=== PATIENT | male | born 1990 | race African-American/Black ===

== ENCOUNTER 2017-02-11 13:53 | Emergency (ER) | payer SELFPAY ==
[~2017-02-11] VITALS: Ht 177.8 cm; Wt 79.5 kg
[~2017-02-11 13:53] MED LIST: CYCL-36 PO; IBUP600T26 PO
[2017-02-11 13:54] VITALS: BP 133/76; PULSE 96; RESP 20; TEMP 102.3; O2SAT 98
[2017-02-11 14:38] LABS: BASOPHIL % 0.2 % (0.0-2.0); HEMATOCRIT 40.8 % (39.0-51.0); HEMO FLAGS DIFF FINAL; LYMPH % 10.1 % (9.0-44.0); LYMPHOCYTE # 1.4 TH/MM3 (1.0-4.8); MEAN CELL VOLUME 80.1 FL (80.0-100.0); MEAN CORPUSCULAR HEMOGLOBIN 25.9 PG (27.0-34.0); MEAN CORPUSCULAR HGB CONC 32.3 % (32.0-36.0); MONO % 9.2 % (0.0-8.0); NEUT % 80.5 % (16.0-70.0); PLATELET COUNT 204 TH/MM3 (150-450); RED CELL DISTRIBUTION WIDTH 15.2 % (11.6-17.2); WHITE BLOOD COUNT 13.6 TH/MM3 (4.0-11.0)
[2017-02-11 14:59] LABS: ALT (GPT) 19 U/L (12-78); ANION GAP 10 MEQ/L (5-15); AST (GOT) 21 U/L (15-37); BLOOD UREA NITROGEN 12 MG/DL (7-18); CHLORIDE 100 MEQ/L (98-107); GLOMERULAR FILTRATION RATE 83 ML/MIN (>89); POTASSIUM 3.5 MEQ/L (3.5-5.1); SODIUM (NA) 136 MEQ/L (136-145)
[2017-02-11 15:02] LABS: ALKALINE PHOSPHATASE 60 U/L (45-117); TOTAL BILIRUBIN ADULT 0.4 MG/DL (0.2-1.0)
[2017-02-11] MEDS ORDERED: ACETAMINOPHEN 500 MG CPLT PO ONE (16:00)
[2017-02-11] MEDS ORDERED: SODIUM CHLOR 0.9% 1000 ML INJ 1,000 ML IV SCH (16:00)
[2017-02-11] MEDS ORDERED: IOHEXOL 350 MG/ML 10 ML VIAL (for RAD DIAG) IVCONTRAST ONE (16:19)
--- NOTE | 2017-02-11 16:34 | RADRPT ---
EXAM DATE/TIME: 02/11/2017 16:05 [place] COMPARISON: CT ABDOMEN & PELVIS W CONTRAST, June 29, 2009, 22:25. INDICATIONS : Diffuse upper right abdomen pain with constipation and chills. IV CONTRAST: 96 cc Omnipaque 350 (iohexol) IV ORAL CONTRAST: No oral contrast ingested. RADIATION DOSE: 6.64 CTDIvol (mGy) MEDICAL HISTORY : None SURGICAL HISTORY : Appendectomy. ENCOUNTER: Initial ACUITY: 3 days PAIN SCALE: 7/10 LOCATION: Right upper quadrant TECHNIQUE: Volumetric scanning of the abdomen and pelvis was performed. Using automated exposure control and ad justment of the mA and/or kV according to patient size, radiation dose was kept as low as reasonably achievable to obtain optimal diagnostic quality images. DICOM format image data is available electro nically for review and comparison. FINDINGS: LOWER LUNGS: The visualized lower lungs are clear. LIVER: Homogeneous density without lesion. There is no dilation of the biliary tree. No calcified gallston es. SPLEEN: Normal size without lesion. PANCREAS: Within normal limits. KIDNEYS: Normal in size and shape. There is no mass, stone or hydronephrosis. ADRENAL GLANDS: Within normal limits. VASCULAR: There is no aortic aneurysm. BOWEL/MESENTERY: The stomach, small bowel, and colon demonstrate no acute abnormality. There is no free intraperitone al air or fluid. ABDOMINAL WALL: Within normal limits. RETROPERITONEUM: There is no lymphadenopathy. BLADDER: No wall thickening or mass. REPRODUCTIVE: Small right hydrocele INGUINAL: There is no lymphadenopathy or hernia. MUSCULOSKELETAL: Within normal limits for patient age. CONCLUSION: 1. Small right hydrocele. 2. I don't see inflammatory process in the abdomen or pelvis 3. There is no evidence of pyelonephritis. Shon Vinson MD FACR on February 11, 2017 at 16:31 Board Certified Radiologist. This report was verified electronically.
[2017-02-11 16:53] LABS: BLOOD, URINE NEG (NEG); COMMENT (UR) CULT NOT INDICATED; CULTURE IF INDICATED CULT NOT INDICATED; GLUCOSE,URINE NEG (NEG); KETONE, URINE 10 mg/dL (NEG); MUCUS URINE FEW /lpf (OCC); NITRITE,URINE NEG (NEG); PH, URINE 6.5 (5.0-8.5); URINE COLOR YELLOW (YELLW/STRAW)
--- NOTE | 2017-02-11 16:55 | PD ---
HPI Chief Complaint: GI Complaint Time Seen by Provider: 15:44 Travel History International Travel<30 days: No Contact w/Intl Traveler<30days: No Traveled to known affect area: No History of Present Illness HPI This is a 26-year-old male who presents to the emergency department with 4 days of vomiting and fever, constant, moderate severity associated with some lower abdominal cramping. He denies any diarrhea and says he actually hasn't had a bowel movement in 3 days. He does have a sore throat. He denies any cough or rhinorrhea. PFSH Past Medical History Blood Disorders: No Cancer: No Cardiovascular Problems: No Diminished Hearing: No Endocrine: No Gastrointestinal Disorders: No Genitourinary: No Immune Disorder: No Implanted Vascular Access Dvce: No Musculoskeletal: No Neurologic: No Psychiatric: No Reproductive: No Respiratory: No Immunizations Current: No Past Surgical History Appendectomy: Yes Oral Surgery: Yes (CYST REMOVED REMOVED) Other Surgery: Yes (CYST REMOVED FROM THROAT) Social History Alcohol Use: No Tobacco Use: No Substance Use: Yes (MARIJUANA, ECSTASY) Allergies-Medications (Allergen,Severity, Reaction): Coded Allergies: No Known Allergies (Verified Adverse Reaction, Unknown, 02/11/17) Reported Meds & Prescriptions Reported Meds & Active Scripts Active Flexeril (Cyclobenzaprine HCl) 10 Mg Tab 5 Mg PO Q8 Ibuprofen 600 Mg Tab 600 Mg PO Q8H PRN Review of Systems Except as stated in HPI: all other systems reviewed are Neg Physical Exam Narrative GENERAL:Well appearing, no acute distress SKIN: Focused skin assessment warm and dry. HEAD: Atraumatic. Normocephalic. EYES: Pupils equal and round. No injection or drainage. ENT: Moderate posterior pharyngeal erythema with no exudates, no uvular deviation NECK: Trachea midline. No lymphadenopathy CARDIOVASCULAR: Regular rate and rhythm. No murmur appreciated. RESPIRATORY: Clear to auscultation. Breath sounds equal bilaterally. GASTROINTESTINAL: Abdomen soft, tender to palpation in the right upper quadrant and right lower quadrants with no rebound or guarding. MUSCULOSKELETAL: No obvious deformities. NEUROLOGICAL: Awake and alert. No obvious cranial nerve deficits. Moving all extremities. PSYCHIATRIC: Appropriate mood and affect; insight and judgment normal. Data Data Last Documented VS Vital Signs Date Time Temp Pulse Resp B/P (MAP) Pulse Ox O2 Delivery O2 Flow Rate FiO2 02/11/17 13:54 102.3 96 20 133/76 (95) 98 Room Air Orders Orders Complete Blood Count With Diff (02/11/17 14:01) Comprehensive Metabolic Panel (02/11/17 14:01) Lipase (02/11/17 14:01) Ct Abd/Pel W Iv Contrast(Rout) (02/11/17 ) Urinalysis - C+S If Indicated (02/11/17 15:49) Sodium Chlor 0.9% 1000 Ml Inj (Ns 1000 M (02/11/17 16:00) Acetaminophen (Tylenol) (02/11/17 16:00) Lactic Acid (02/11/17 15:51) Group A Rapid Strep Screen (02/11/17 16:05) Iohexol 350 Inj (Omnipaque 350 Inj) (02/11/17 16:19) Labs Laboratory Tests Test 02/11/17 14:05 02/11/17 14:20 02/11/17 16:35 White Blood Count 13.6 TH/MM3 Red Blood Count 5.10 MIL/MM3 Hemoglobin 13.2 GM/DL Hematocrit 40.8 % Mean Corpuscular Volume 80.1 FL Mean Corpuscular Hemoglobin 25.9 PG Mean Corpuscular Hemoglobin Concent 32.3 % Red Cell Distribution Width 15.2 % Platelet Count 204 TH/MM3 Mean Platelet Volume 8.0 FL Neutrophils (%) (Auto) 80.5 % Lymphocytes (%) (Auto) 10.1 % Monocytes (%) (Auto) 9.2 % Eosinophils (%) (Auto) 0.0 % Basophils (%) (Auto) 0.2 % Neutrophils # (Auto) 11.0 TH/MM3 Lymphocytes # (Auto) 1.4 TH/MM3 Monocytes # (Auto) 1.2 TH/MM3 Eosinophils # (Auto) 0.0 TH/MM3 Basophils # (Auto) 0.0 TH/MM3 CBC Comment DIFF FINAL Differential Comment Blood Urea Nitrogen 12 MG/DL Creatinine 1.25 MG/DL Random Glucose 104 MG/DL Total Protein 8.1 GM/DL Albumin 3.9 GM/DL Calcium Level 8.8 MG/DL Alkaline Phosphatase 60 U/L Aspartate Amino Transf (AST/SGOT) 21 U/L Alanine Aminotransferase (ALT/SGPT) 19 U/L Total Bilirubin 0.4 MG/DL Sodium Level 136 MEQ/L Potassium Level 3.5 MEQ/L Chloride Level 100 MEQ/L Carbon Dioxide Level 26.0 MEQ/L Anion Gap 10 MEQ/L Estimat Glomerular Filtration Rate 83 ML/MIN Lipase 58 U/L Lactic Acid Level 0.9 mmol/L Urine Color YELLOW Urine Turbidity CLEAR Urine pH 6.5 Urine Specific [place] GREATER THAN 1.050 Urine Protein 30 mg/dL Urine Glucose (UA) NEG mg/dL Urine Ketones 10 mg/dL Urine Occult Blood NEG Urine Nitrite NEG Urine Bilirubin NEG Urine Urobilinogen 4.0 MG/DL Urine Leukocyte Esterase NEG Urine RBC 2 /hpf Urine WBC 2 /hpf Urine Mucus FEW /lpf Microscopic Urinalysis Comment CULT NOT INDICATED MDM Medical Decision Making Medical Screen Exam Complete: Yes Emergency Medical Condition: Yes Interpretation(s) Temperature is 102.3, tachycardic Leukocytosis 80% neutrophils Electrolytes are reassuring Lactic acid is 0.9 Urinalysis demonstrates no infection CT abdomen and pelvis: No acute process Differential Diagnosis Strep pharyngitis, peritonsillar abscess, acute appendicitis, colitis, cholecystitis Narrative Course This is a 26-year-old male who presents to the emergency department with vomiting, fever and sore throat. He is quite tender in the right upper and right lower quadrants on exam. He was placed on a monitor and an IV was established. Labs are obtained which demonstrated a mild leukocytosis. He was febrile to 102. 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 CT was reassuring. Rapid strep is positive which I suspect is the etiology of his symptoms. Patient will be placed on antibiotics. Diagnosis Primary Impression: Strep pharyngitis Patient Instructions: General Instructions Additional Instructions: If you develop severe or worsening abdominal pain, fever>100.4, persistent vomiting or inability to eat or drink return to the emergency department immediately. Follow up with your primary care physician in 1-2 days for a check-up. Med/Other Pt SpecificInfo: Prescription(s) given Scripts Ondansetron Odt (Zofran Odt) 4 Mg Tab 4 MG SL Q6HR Y for Nausea/Vomiting, #14 TAB 0 Refills Prov: Lacie David MD 02/11/17 Penicillin V Potassium (Penicillin V Potassium) 500 Mg Tab 500 MG PO TID for Infection for 10 Days, TAB 0 Refills Prov: Lacie David MD 02/11/17 Disposition: 01 DISCHARGE HOME Condition: Stable Lacie David MD Feb 11, 2017 16:55
[2017-02-11] MEDS ORDERED: ZOFR4TAB3 SL (17:14)
[2017-02-11] MEDS ORDERED: PENI500T PO (17:14)
[2017-02-11 17:33] VITALS: BP 132/80
== END 2017-02-11 17:34 | disposition home or self-care (01) ==
LOC: NEPD 13:53
DX: J02.0 Streptococcal pharyngitis (principal); R11.10 Vomiting, unspecified; R00.0 Tachycardia, unspecified; D72.829 Elevated white blood cell count, unspecified; N43.3 Hydrocele, unspecified
CPT/HCPCS: 74177; 80053; 81001; 83605; 83690; 85025; 87880; 99285; J7030; Q9967